=== PATIENT | female | born 1985 | race Caucasian/White ===

== ENCOUNTER 2016-12-14 17:52 | Emergency (ER) | payer BC, MEDICAID ==
[~2016-12-14] VITALS: Ht 172.7 cm; Wt 69.0 kg
[2016-12-14 17:53] VITALS: BP 158/96; PULSE 104; RESP 14; TEMP 98.5; O2SAT 100
[2016-12-14] MEDS ORDERED: INSU100V SQ (18:01)
--- NOTE | 2016-12-14 18:08 | PD ---
HPI Chief Complaint: Oral / Dental Pain or Problem Time Seen by Provider: 18:02 Travel History International Travel<30 days: No Contact w/Intl Traveler<30days: No Traveled to known affect area: No History of Present Illness HPI 31-year-old female presents the right Department with ongoing chronic dental pain, swelling, and extensive dental decay. Patient states she Has an appointment with dentist in 2 weeks. Patient states her pain is such that she cannot eat. Patient has been taking douq-jvy-zcrjmnw medications without improvement. She denies fever, chills, or difficulty swallowing. Pain is rated as 8/10. She is allergic to ibuprofen which causes stomach upset. PFSH Social History Alcohol Use: Yes Tobacco Use: Yes Substance Use: No Allergies-Medications (Allergen,Severity, Reaction): Coded Allergies: Ibuprofen (Verified Allergy, Unknown, VOMITING, 12/14/16) Reported Meds & Prescriptions Reported Meds & Active Scripts Active Magic Mouthwash Adult Liq (Multi-Ingredient Mouthwash/Gargle) 120 Ml Susp 5 Ml SWISH-SPIT Q2HR Each 5 mL contains: Nystatin 200,000 units, Diphenhydramine 4.25 mg, Viscous Lidocaine 10 mg, Mejía syrup 0.8 mL Ibuprofen 800 Mg Tab 800 Mg PO Q8H PRN Amoxicillin 875 Mg Tab 875 Mg PO BID Acetaminophen 325 Mg Tab 650 Mg PO Q6HR PRN Reported Humalog Mix 75-25 Inj (Insulin Lispro Protam/Lispro Human) 1,000 Unit/10 Ml Susp 1 Units SQ Review of Systems Except as stated in HPI: all other systems reviewed are Neg General / Constitutional: No: Fever Eyes: No: Visual changes HENT: Positive: Dental Difficulties, No: Headaches, Gingival Bleeding Cardiovascular: No: Chest Pain or Discomfort Respiratory: No: Shortness of Breath Gastrointestinal: No: Abdominal Pain Genitourinary: No: Dysuria Musculoskeletal: No: Pain Skin: No Rash Neurologic: No: Weakness Psychiatric: No: Depression Endocrine: No: Polydipsia Hematologic/Lymphatic: No: Easy Bruising Physical Exam Narrative GENERAL: Patient appears in no acute distress. SKIN: Warm and dry. Normal color. Normal turgor. HEAD: Atraumatic. Normocephalic. EYES: Pupils equal and round. No scleral icterus. No injection or drainage. ENT: No nasal bleeding or discharge. Mucous membranes pink and moist. Patient has extensive dental decay, with mild swelling to the gingival regions bilaterally. He denied signs of abscess were noted. Nontender. NECK: Trachea midline. No JVD. CARDIOVASCULAR: Regular rate and rhythm. RESPIRATORY: No accessory muscle use. Clear to auscultation. Breath sounds equal bilaterally. MUSCULOSKELETAL: Extremities without clubbing, cyanosis, or edema. No obvious deformities. NEUROLOGICAL: Awake and alert. No obvious cranial nerve deficits. Motor grossly within normal limits. Five out of 5 muscle strength in the arms and legs. Normal speech. PSYCHIATRIC: Appropriate mood and affect; insight and judgment normal. Data Data Last Documented VS Vital Signs Date Time Temp Pulse Resp B/P Pulse Ox O2 Delivery O2 Flow Rate FiO2 12/14/16 17:53 98.5 104 14 158/96 100 MDM Medical Decision Making Medical Screen Exam Complete: Yes Emergency Medical Condition: Yes Differential Diagnosis Dental pain. Extensive dental decay and caries. Dental abscess. Narrative Course Patient is medically stable at time of exam. Patient will be treated with amoxicillin 875 twice a day for 14 days. Patient is given Magic mouthwash 5-10 cc every 2 hours swish and spit #120 mL with 2 refills. Patient also given ibuprofen 800 mg 3 times daily with food #30. Patient is given a prescription for acetaminophen 650 every 6 hours when necessary #40. Patient is to follow-up with dental services as soon as possible. Diagnosis Primary Impression: Dental abscess Referrals: Dentist Patient Instructions: Dental Abscess (ED), Dental Caries (ED), General Instructions Additional Instructions: Patient will be treated with amoxicillin 875 twice a day for 14 days. Patient is given Magic mouthwash 5-10 cc every 2 hours swish and spit #120 mL with 2 refills. Patient also given ibuprofen 800 mg 3 times daily with food #30. Patient is given a prescription for acetaminophen 650 every 6 hours when necessary #40. Patient is to follow-up with dental services as soon as possible. Scripts Yfctreap-Ezmkgjwlridncct-Rzqguymmd Liq (Magic Mouthwash Adult Liq)120 Ml Susp5 Ml SWISH-SPIT Q2HR #120 ML Ref 2 Each 5 mL contains: Nystatin 200,000 units, Diphenhydramine 4.25 mg, Viscous Lidocaine 10 mg, Mejía syrup 0.8 mL Prov:Sean Covarrubias MD 12/14/16 Ibuprofen 800 Mg [id number] Mg PO Q8H PRN (Pain/Inflammation) #30 TAB Prov:Sean Covarrubias MD 12/14/16 Amoxicillin 875 Mg [id number] Mg PO BID #28 TAB Prov:Sean Covarrubias MD 12/14/16 Acetaminophen 325 Mg [id number] Mg PO Q6HR PRN (PAIN SCALE 4 TO 10) #40 TAB Prov:Sean Covarrubias MD 12/14/16 Disposition: 01 DISCHARGE HOME Condition: Stable Garry Jacobs December 14, 2016 18:08
[2016-12-14] MEDS ORDERED: IBUP800T23 PO (18:09)
[2016-12-14] MEDS ORDERED: AMOX875T PO (18:09)
[2016-12-14] MEDS ORDERED: ACET325T PO (18:09)
[2016-12-14] MEDS ORDERED: MAGICADU2 SWISH-SPIT (18:10)
== END 2016-12-14 18:30 | disposition home or self-care (01) ==
LOC: PHEFT 17:52
DX: K04.7 Periapical abscess without sinus (principal); Z72.0 Tobacco use
CPT/HCPCS: 99282